=== PATIENT | female | born 1965 | race Caucasian/White ===

== ENCOUNTER → 2016-10-13 | Outpatient (CLI) | payer OTHER | END | disposition home or self-care (01) | LOC: MW.RT 19:49 | PROVIDERS: ATTEND Student in an Organized Health Care Education/Training Program | DX: G47.19 Other hypersomnia (principal); G47.30 Sleep apnea, unspecified; G47.52 REM sleep behavior disorder; L98.9 Disorder of the skin and subcutaneous tissue, unspecified | CPT/HCPCS: 95811 ==

== ENCOUNTER 2016-12-28 09:57 | Day surgery (SDC) | payer OTHER ==
[~2016-12-28 09:57] MED LIST: Lactated Ringers 1,000 ML IV SCH; Lidocaine 2% 5 ML SDV ONE; Propofol 200 MG/20 ML SDV ONE; Sodium Chloride 0.9% 10 ML Syringe FLUSH PRN; Sodium Chloride 0.9% 2.5 ML Syringe FLUSH PRN
--- NOTE | 2016-12-28 10:43 | PCM.PREANE ---
Preanesthetic Assessment - Anesthesia/Transfusion/Family Hx Anesthesia History: Prior Anesthesia Without Reaction Transfusion History: No Prior Transfusion(s) - Review of Systems General: No Symptoms Pulmonary: No Symptoms Cardiovascular: No Symptoms Gastrointestinal: No symptoms Neurological: No Symptoms Other: Reports: None - Physical Assessment NPO Status Date: 12/27/16 O2 Sat by Pulse Oximetry: 97 Respiratory Rate: 16 Vital Signs: Last Vital Signs Temp 36.7 C 12/28/16 10:17 Pulse 81 12/28/16 10:17 Resp 16 12/28/16 10:17 BP 116/71 12/28/16 10:17 Pulse Ox 97 12/28/16 10:17 Height: 1.78 m Weight: 97.069 kg ASA Class: 2 Mental Status: Alert & Oriented x3 Airway Class: Mallampati = 1 Dentition: Reports: Normal Dentition ROM/Head Extension: Full Lungs: Clear to auscultation, Normal respiratory effort Cardiovascular: Regular Rate, Regular Rhythm - Allergies Allergies/Adverse Reactions: Allergies Allergy/AdvReac Type Severity Reaction Status Date / Time No Known Allergies Allergy Verified 12/23/16 14:01 - Anesthesia Plan Pre-Op Medication Ordered: None - Acknowledgements Anesthesia Type Planned: MAC Pt an Appropriate Candidate for the Planned Anesthesia: Yes Alternatives and Risks of Anesthesia Discussed w Pt/Guardian: Yes Pt/Guardian Understands and Agrees with Anesthesia Plan: Yes PreAnesthesia Questionnaire HEENT History: Reports: None Respiratory History: Reports: Sleep Apnea Other Respiratory History: uses CPAP 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: Musculoskeletal History: Reports: Fibromyalgia, Gout Neurological History: Reports: None Endocrine/Metabolic History: Reports: Obesity/BMI 30+ - Past Surgical History Head Surgeries/Procedures: Reports: None Other HEENT Surgeries/Procedures: rhinoplasty for fx nose Neurological Surgical History: Reports: Lumbar Spine Other Neurological Surgeries/Procedures: hx spinal fusion Musculoskeletal Surgical History: Reports: Other (See Below) Other Musculoskeletal Surgeries/Procedures:: rt achilles tendon repair - SUBSTANCE USE Smoking Status *Q: Never Smoker Recreational Drug Use History: No - HOME MEDS Home Medications: Home Meds Meloxicam 7.5 mg PO ASDIRECTED PRN 12/23/16 [History] Norethindrone AC-Eth Estradiol [Junel 1 mg-20 Mcg Tablet] 1 tab PO ASDIRECTED [History] Pregabalin [Lyrica] 75 mg PO BID 12/23/16 [History] Pregabalin [Lyrica] 150 mg PO DAILY 12/23/16 [History] - CURRENT (IN HOUSE) MEDS Current Meds: Current Medications Lactated Ringer's (Ringers, Lactated) 1,000 mls @ 125 mls/hr IV ASDIRECTED GIFTY Last Admin: 12/28/16 10:20 Dose: 125 mls/hr Sodium Chloride (Saline Flush) 10 ml FLUSH ASDIRECTED PRN PRN Reason: Keep Vein Open Sodium Chloride (Saline Flush) 2.5 ml FLUSH ASDIRECTED PRN PRN Reason: Keep Vein Open Discontinued Medications Lidocaine (Xylocaine-Mpf 2%) Confirm Administered Dose 5 ml .ROUTE .STK-MED ONE Stop: 12/28/16 08:00 Propofol (Diprivan 20 Ml) Confirm Administered Dose 400 mg .ROUTE .STK-MED ONE Stop: 12/28/16 08:00
[2016-12-28] MEDS ORDERED: Propofol 200 MG/20 ML SDV ONE ×3 (11:02→12:31)
--- NOTE | 2016-12-28 12:14 | PCM.OPNOTE ---
- General Post-Op/Procedure Note Date of Surgery/Procedure: 12/28/16 Operative Procedure(s): Colonoscopy Findings: Very poor prep. No evidence of large colonic masses or polyps Pre Op Diagnosis: colonoscopy Post-Op Diagnosis: same Anesthesia Technique: MAC Primary Surgeon: Lesli Lancaster Condition: Good
[2016-12-28 13:01] VITALS: BP 113/69
--- NOTE | 2016-12-28 13:37 | PCM48HPAN ---
Post Anesthesia Note - EVALUATION WITHIN 48HRS OF ANESTHETIC Vital Signs in Normal Range: Yes Patient Participated in Evaluation: Yes Respiratory Function Stable: Yes Airway Patent: Yes Cardiovascular Function Stable: Yes Hydration Status Stable: Yes Pain Control Satisfactory: Yes Nausea and Vomiting Control Satisfactory: Yes Mental Status Recovered: Yes
--- NOTE | 2016-12-28 13:38 | PCM.POSTAN ---
POST ANESTHESIA ASSESSMENT - MENTAL STATUS Mental Status: alert, oriented - RESPIRATORY Respiratory Status: respiratory rate WNL, airway patent, O2 saturation stable - CARDIOVASCULAR CV Status: pulse rate WNL, blood pressure stable - GASTROINTESTINAL GI Status: no symptoms - POST OP HYDRATION Hydration Status: adequate & stable
--- NOTE | 2016-12-29 01:15 | OR ---
SURGEON: ARIANNA CONNER MD DATE OF PROCEDURE: 12/28/2016 PREOPERATIVE DIAGNOSIS: Screening colonoscopy. POSTOPERATIVE DIAGNOSIS: Screening colonoscopy. PROCEDURE PERFORMED: Screening colonoscopy. ANESTHESIA: MAC. INSTRUMENT USED: Olympus colonoscope. EXTENT OF EXAM: To the cecum. PREPARATION: Poor. LIMITATIONS: Extremely poor bowel prep. INDICATIONS: The patient is a 51-year-old female, who presents for first time screening colonoscopy. I explained to her the procedure as well as expected perioperative course. We discussed the risks, including bleeding, infection, or damage to surrounding structures, including perforation. The patient verbalized understanding and wishes to proceed. PROCEDURE IN DETAIL: The patient was brought to the endoscopy suite and placed in left lateral decubitus position. A time-out was completed verifying the patient's name, age, date of , allergies, and procedure to be performed. Monitored anesthesia care was induced and continuous oxygen was provided via nasal cannula. After adequate sedation was achieved, digital rectal exam was performed. This exam was within normal limits. A well lubricated colonoscope was then inserted into the rectum. I immediately encountered a large amount of brown appearing liquid stool. This made it extremely difficult to navigate through the sigmoid colon. With multiple irrigations, I was able to suction and cleaned out the sigmoid well enough to navigate up to the splenic flexure. Once at the splenic flexure, the amount of stool decreased to where I could advance my scope under direct visualization to the cecum. This was difficult given that the scope began looping more proximally. After many position changes, however, I was able to successfully reach the cecum. A photograph was taken. I was unable to retroflex the scope given the looping of the scope more proximal due to the redundancy of her sigmoid colon. The scope was then pulled back while examining the color, texture, anatomy, and integrity, mucosa from the cecum to the anal canal. I was able to irrigate and adequately view the proximal 2/3rd of the colon. However, upon entering the sigmoid colon, I again entered a large amount of liquid brown stool with solid pieces of seeds and roughage in it. I continued to try and irrigate the colon as best as I could, however, I plugged two scopes trying to do so. Because of this, I was unable to adequately visualize the last 10 cm of the patient's colon and I was unable to retroflex. However, upon entering the colon previously, I had gotten a fairly good look at the first 10 cm of the colon and did not notice any large polyps within the area. Because of the poor prep, I did not attempt to retroflex the scope within the rectum. The scope was removed from the patient and the procedure terminated. The cecum to anus time was 10 minutes. The patient was transferred to recovery room in stable condition. ENDOSCOPIC DIAGNOSIS: Normal colonoscopy, however, very poor bowel prep. RECOMMENDATIONS: Follow up in clinic in 5 years for a repeat colonoscopy given the poor prep. NAINA CURIEL /[id number]
== END 2016-12-28 13:05 | disposition home or self-care (01) ==
LOC: MW.SDS 09:57
PROVIDERS: ATTEND Surgery
PROC: 0DJD8ZZ Inspection of Lower Intestinal Tract, Via Natural or Artificial Opening Endoscopic (ICD-10-PCS; principal; 2016-12-28)
DX: Z12.11 Encounter for screening for malignant neoplasm of colon (principal); G47.19 Other hypersomnia; M79.7 Fibromyalgia; G47.33 Obstructive sleep apnea (adult) (pediatric); M10.9 Gout, unspecified; E66.9 Obesity, unspecified; Z79.899 Other long term (current) drug therapy; Z98.890 Other specified postprocedural states; Z98.1 Arthrodesis status; Z68.30 Body mass index [BMI] 30.0-30.9, adult
CPT/HCPCS: 45378; 81025; J7120; J2704